=== PATIENT | male | born 1985 | race Caucasian/White ===

== ENCOUNTER 2021-04-27 18:33 | Emergency (ER) | payer OTHER ==
[~2021-04-27] VITALS: Ht 182.9 cm; Wt 88.5 kg
[2021-04-27] MEDS ORDERED: ASPIRIN 81 MG TAB.CHEW PO ONE (19:00)
--- NOTE | 2021-04-27 19:02 | NUR ---
Pt came in with c/o chest pain that started 1 hr [place], PL:10/12. Denies any GI/ distress. A/O x4, no SOB or labored breathing afebrile. Clear speech, complete sentences.
--- NOTE | 2021-04-27 19:03 | NUR ---
Dr. Casas at bedside, MSE in progress.
--- NOTE | 2021-04-27 19:05 | NUR ---
Xray at bedside.
[2021-04-27 19:13] LABS: HEMATOCRIT 42.4 % (36.7-47.1); MEAN CORPUSCULAR HEMOGLOBIN 27.3 uug (23.8-33.4); MEAN CORPUSCULAR VOLUME 82.1 fL (73.0-96.2); PLATELET COUNT (AUTO) 245 K/uL (152-348)
[2021-04-27] MEDS ORDERED: ASPIRIN 81 MG TAB.CHEW ONE (19:15)
[2021-04-27 19:20] LABS: POTASSIUM 3.5 mmol/L (3.5-5.1)
[2021-04-27 19:32] LABS: BILIRUBIN,DIRECT 0.1 mg/dL (0.0-0.2); BILIRUBIN,TOTAL 0.3 mg/dL (0.2-1.0); TOTAL PROTEIN, SERUM 7.6 g/dL (6.4-8.2)
--- NOTE | 2021-04-27 20:25 | NUR ---
Patient discharged to home in stable condition. A/O x4, no SOB or labored breathing, Denies any CP/pressure. Denies any pain/discomfort. Written and verbal after care instructions given. Patient verbalizes understanding of instructions. Stressed follow up or return to ER for worsening s/s. Steady gait. Picked up by family.
[2021-04-27 20:26] VITALS: BP 124/80
== END 2021-04-27 20:27 | disposition home or self-care (01) ==
LOC: ER 18:36
DX: R07.9 Chest pain, unspecified (principal); R94.31 Abnormal electrocardiogram [ECG] [EKG]
CPT/HCPCS: 36415; 70030-TC; 71045; 85025; 93005; A4663

== ENCOUNTER 2021-10-07 17:21 | Emergency (ER) | payer OTHER ==
[~2021-10-07] VITALS: Ht 182.9 cm; Wt 95.3 kg
--- NOTE | 2021-10-07 21:00 | NUR ---
PATIENT WAS CALLED TO BE PLACED IN ROOM BUT WAS NOT PRESENT IN THE WAITING ROOM.
--- NOTE | 2021-10-07 21:45 | NUR ---
WAS CALLED TO BE PLACED IN ROOM BUT WAS NOT PRESENT IN THE WAITING OR OUTSIDE OF ER.
--- NOTE | 2021-10-07 22:00 | NUR ---
DEEJAY WAS TRIAGED BUT WAS NOT SEEN BY ERMD.
== END 2021-10-07 22:00 | disposition left against medical advice (07) ==
LOC: ER 17:23
DX: Z53.21 Procedure and treatment not carried out due to patient leaving prior to being seen by health care provider (principal)

== ENCOUNTER 2022-03-27 23:52 | Emergency (ER) | payer OTHER ==
[~2022-03-27] VITALS: Ht 182.9 cm; Wt 93.0 kg
--- NOTE | 2022-03-28 00:05 | NUR ---
Pt brought back to room 1b, placed on gurney in pos of comfort. Connected to monitor and second BP obtained. 139/74. pt denies any pain, sob, dizziness, n/v or discomfort of any kind. Pt is aaox4 with good color, temp and appearance. Pt is well developed young male with normal body wt, PE wnl, nad, PERRLA, no jvd, no trach dev., no dental caries or lesions. Pt NSR without ectopy, RRR normal s1s2 no g/r/m, lungs ctab. No s/sxof distress present. pt patiently awaiting EDMD for eval and exam.
--- NOTE | 2022-03-28 00:08 | NUR ---
EDMD at bedside to assess pt. EDMD performed full phys. exam on pt. determined that pt is completely healthy, provided some education on hypertension and told pt he will be dced home.
--- NOTE | 2022-03-28 00:15 | NUR ---
Pt given dc instructions and referals to seat pack inspector and cardio. Pt confirmed understanding of instructions. BP checked one more time at 132/82, 99%RA, 72bpm, 16rpm. Teaching reiterated. Pt understood. signed out and ambulated out of dept with steady gait. No s/sx of distress.
[2022-03-28 00:38] VITALS: BP 132/82
== END 2022-03-28 00:15 | disposition home or self-care (01) ==
LOC: ER 23:54
DX: R03.0 Elevated blood-pressure reading, without diagnosis of hypertension (principal); E78.00 Pure hypercholesterolemia, unspecified
CPT/HCPCS: A4663